=== PATIENT | female | born 2000 | race Caucasian/White ===

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

== ENCOUNTER 2021-08-31 19:35 | Emergency (ER) | payer OTHER ==
[2021-08-31 20:28] VITALS: BP 123/85; PULSE 67; RESP 22; TEMP 98
--- NOTE | 2021-08-31 21:01 | XR ---
EXAMINATION TYPE: XR ankle complete RT DATE OF EXAM: 08/31/2021 COMPARISON: NONE HISTORY: Ankle pain foot pain TECHNIQUE: 3 views FINDINGS: Ankle mortise is anatomic. I see no fracture nor dislocation. IMPRESSION: Negative right ankle exam.
--- NOTE | 2021-08-31 21:02 | XR ---
EXAMINATION TYPE: XR foot complete RT DATE OF EXAM: 08/31/2021 COMPARISON: NONE HISTORY: Pain TECHNIQUE: 3 views FINDINGS: Metatarsals are intact. I see no fracture nor dislocation. Toes appear intact. IMPRESSION: Negative right foot exam. No fracture.
[2021-08-31] MEDS ORDERED: IBUPROFEN 600 MG TAB PO STA (21:28)
--- NOTE | 2021-08-31 21:28 | ED ---
Lower Extremity Injury HPI - General Chief Complaint: Extremity Injury, Lower Stated Complaint: Ankle and toes checked Time Seen by Provider: 08/31/21 21:21 Source: patient Mode of arrival: ambulatory Limitations: no limitations - History of Present Illness Initial Comments: 21 year-old female patient presents to the emergency department for evaluation o f right foot pain and numbness. States that a few days ago she was hanging out with a friend and they were being "wild". States that she believes she injured the foot that night because she woke with pain. States there has been some redness and swelling that did improve today. She denies taking anything for pain. Denies chance of . Denies any other injuries or concerns. - Related Data Previous Rx's Medication Instructions Recorded Ibuprofen [Motrin] 600 mg PO Q8HR PRN #30 tab 08/31/21 Allergies Allergy/AdvReac Type Severity Reaction Status Date / Time Sulfa (Sulfonamide Allergy Swelling Verified 08/31/21 20:27 Antibiotics) Review of Systems ROS Statement: Those systems with pertinent positive or pertinent negative responses have been documented in the HPI. ROS Other: All systems not noted in ROS Statement are negative. Past Medical History Additional Past Medical History / Comment(s): adhd History of Any Multi-Drug Resistant Organisms: None Reported Past Surgical History: No Surgical Hx Reported Past Psychological History: ADD/ADHD Smoking Status: Former smoker, Vaper Past Alcohol Use History: None Reported Past Drug Use History: None Reported General Exam Limitations: no limitations General appearance: alert, in no apparent distress, other (This is a well- developed, well-nourished adult female patient in no acute distress.) Eye exam: Present: normal appearance, PERRL, EOMI. Absent: scleral icterus, conjunctival injection, periorbital swelling ENT exam: Present: normal exam, normal oropharynx, mucous membranes moist Respiratory exam: Present: normal lung sounds bilaterally. Absent: respiratory distress, wheezes, rales, rhonchi, stridor Cardiovascular Exam: Present: regular rate, normal rhythm, normal heart sounds. Absent: systolic murmur, diastolic murmur, rubs, gallop, clicks Extremities exam: Present: full ROM, normal capillary refill, other (There is tenderness over the dorsal aspect of the foot. No soft tissue swelling or ecchymosis noted. No erythema. Skin is otherwise pink, warm, dry. Cap refill less than 3 seconds. Pedal and posttibial pulses 2+.). Absent: tenderness, pedal edema, joint swelling, calf tenderness Neurological exam: Present: alert, oriented X3, CN II-XII intact Psychiatric exam: Present: normal affect, normal mood Skin exam: Present: warm, dry, intact, normal color. Absent: rash Course Vital Signs 08/31/21 20:23 Temperature 98 F Pulse Rate 67 Respiratory 22 Rate Blood Pressure 123/85 O2 Sat by Pulse 100 Oximetry Medical Decision Making - Medical Decision Making 21-year-old female patient presents to the emergency department today for evaluation of right foot pain. Physical examination did reveal some tenderness over the dorsal aspect of the foot. She is able to ambulate. Neurovascular status is intact. Trace of the right ankle and foot are negative. She is placed in an Jaren wrap. She'll be discharged follow up with the primary care physician for recheck in 1-2 days. She is instructed to follow-up with orthopedics if symptoms are not improved after one week. Return parameters were discussed in detail. She verbalizes understanding and agrees with this plan. My attending is Dr. Padilla. - Radiology Data Radiology results: report reviewed, image reviewed 3 views of the right ankle are obtained. Report is reviewed in its entirety. Impression by Dr. Overton shows negative right ankle exam. 3 views of the right foot are obtained. Report was reviewed in its entirety. Impression by Dr. Overton shows negative right foot examined. No fracture. Disposition Clinical Impression: Right foot sprain Disposition: HOME SELF-CARE Condition: Good Instructions (If sedation given, give patient instructions): Foot Sprain (ED) Additional Instructions: Use Jaren wrap for comfort and support. Rest, ice, elevate the foot. Take medication as directed. Follow-up with orthopedics in 1 week if her symptoms are not improved. Return for any new, worsening, or concerning symptoms. Prescriptions: Ibuprofen [Motrin] 600 mg PO Q8HR PRN #30 tab PRN Reason: Pain Is patient prescribed a controlled substance at d/c from ED?: No Referrals: Zina Cohen MD [Primary Care Provider] - 1-2 days Time of Disposition: 21:28
== END 2021-08-31 21:34 | disposition home or self-care (01) ==
LOC: EC 19:35
DX: S93.601A Unspecified sprain of right foot, initial encounter (principal); F90.9 Attention-deficit hyperactivity disorder, unspecified type; Z88.2 Allergy status to sulfonamides; Z87.891 Personal history of nicotine dependence; X58.XXXA Exposure to other specified factors, initial encounter
CPT/HCPCS: 99283

== ENCOUNTER 2022-01-20 14:31 | Emergency (ER) | payer OTHER ==
[2022-01-20 14:55] VITALS: BP 122/87; PULSE 96; RESP 18; TEMP 97.8
--- NOTE | 2022-01-20 15:54 | XR ---
EXAMINATION TYPE: XR chest 1V portable DATE OF EXAM: 01/20/2022 COMPARISON: 09/06/2010 HISTORY: Cough TECHNIQUE: Single frontal view of the chest is obtained. FINDINGS: There is no focal air space opacity, pleural effusion, or pneumothorax seen. The cardiac silhouette size is within normal limits. The osseous structures are intact. IMPRESSION: 1. No acute process.
--- NOTE | 2022-01-20 16:25 | ED ---
ENT HPI - General Chief complaint: ENT Stated complaint: Shortness of Breath, Sore throat Time Seen by Provider: 01/20/22 14:58 Source: patient, RN notes reviewed, old records reviewed Mode of arrival: ambulatory Limitations: no limitations - History of Present Illness Initial comments: Patient is a 21-year-old female presenting to the emergency Department with complaints of a sore throat for the past 2 days, she has a mild cough and also felt like she was short of breath today while at work. Patient states her work is making her come in to get tested for strep and possible covid. She denies any fevers or chills. She states 2 days ago when her sore throat started she felt like her voice change as well. She's been eating and drinking without difficulty. She has not taken any Tylenol or Motrin for discomfort. She denies history of asthma, she denies shortness of breath or chest pain at this time. She denies any nausea or vomiting, no abdominal pain. She denies any headaches or blurry vision. She has no further complaints. She denies being . - Related Data Previous Rx's Medication Instructions Recorded Ibuprofen [Motrin] 600 mg PO Q8HR PRN #30 tab 08/31/21 Allergies Allergy/AdvReac Type Severity Reaction Status Date / Time Sulfa (Sulfonamide Allergy Swelling Verified 01/20/22 14:53 Antibiotics) Review of Systems ROS Statement: Those systems with pertinent positive or pertinent negative responses have been documented in the HPI. ROS Other: All systems not noted in ROS Statement are negative. Past Medical History Additional Past Medical History / Comment(s): adhd History of Any Multi-Drug Resistant Organisms: None Reported Past Surgical History: No Surgical Hx Reported Past Psychological History: ADD/ADHD Smoking Status: Former smoker, Vaper Past Alcohol Use History: None Reported Past Drug Use History: None Reported General Exam - General Exam Comments Initial Comments: GENERAL: Patient is well-developed and well-nourished. Patient is nontoxic and in no acute distress. HEAD: Atraumatic, normocephalic. EYES: Pupils equal round and reactive to light, extraocular movements intact, sclera anicteric, conjunctiva are normal. Eyelids were unremarkable. ENT: TMs normal, nares patent, oropharynx clear without exudates. Moist mucous membranes. NECK: Normal range of motion, supple without lymphadenopathy or JVD. LUNGS: Unlabored respirations. Breath sounds clear to auscultation bilaterally and equal. No wheezes rales or rhonchi. HEART: Regular rate and rhythm without murmurs, rubs or gallops. ABDOMEN: Soft, nontender, normoactive bowel sounds. No guarding, no rebound. No masses appreciated. MUSCULOSKELETAL: Normal extremities with adequate strength and normal range of motion, no pitting or edema. No clubbing or cyanosis. NEUROLOGICAL: Patient is alert and oriented x 3. SKIN: Warm, Dry, normal turgor, no rashes or lesions noted. Limitations: no limitations Course Vital Signs 01/20/22 14:53 Temperature 97.8 F Pulse Rate 96 Respiratory 18 Rate Blood Pressure 122/87 O2 Sat by Pulse 97 Oximetry Medical Decision Making - Medical Decision Making Patient is a 21-year-old female here with viral type complaints started 2 days ago. Her vitals are stable, she is afebrile. Her exam is unremarkable. Chest x-ray showed no acute process, strep is negative, influenza and Covid are also negative. Discussed findings with the patient. Symptoms most likely viral. Recommended Tylenol and/or Motrin, increase her fluids. She is agreeable this plan of care. She requesting a work note. She stable for discharge. - Lab Data Lab Results 01/20/22 01/20/22 Range/Units 15:25 15:25 Influenza Type A (PCR) Not Detected (Not Detectd) Influenza Type B (PCR) Not Detected (Not Detectd) RSV (PCR) Not Detected (Not Detectd) SARS-CoV-2 (PCR) Not Detected (Not Detectd) Group A Strep Rapid Negative (Negative) Disposition Clinical Impression: Viral syndrome Disposition: HOME SELF-CARE Condition: Stable Instructions (If sedation given, give patient instructions): Viral Syndrome (ED) Additional Instructions: Please return to the Emergency Department if symptoms worsen or any other concerns. Cold, flu are negative, shortness test is also negative. Recommend Tylenol and/or Motrin for your symptoms. Lots of fluids. Is patient prescribed a controlled substance at d/c from ED?: No Referrals: Zina Cohen MD [Primary Care Provider] - 1-2 days Time of Disposition: 16:25
== END 2022-01-20 16:34 | disposition home or self-care (01) ==
LOC: EC 14:31
DX: B34.9 Viral infection, unspecified (principal); Z87.891 Personal history of nicotine dependence; Z20.822 Contact with and (suspected) exposure to COVID-19; Z88.2 Allergy status to sulfonamides
CPT/HCPCS: 71045; 87081; 87430; 87636; 99285

== ENCOUNTER → 2023-10-14 | Outpatient (CLI) | payer BC, OTHER ==
--- NOTE | 2023-10-14 12:59 | US ---
EXAMINATION TYPE: US pelvis complete transvag DATE OF EXAM: 10/14/2023 COMPARISON: NONE CLINICAL INDICATION: Female, 23 years old with history of R89.1 ABNORMAL LEVEL OF HORMONES; suspected PCOS, very light menses x 1 year, trying to conceive since February 2023 TECHNIQUE: Transvaginal (TV) and Transabdominal (TA) . Transabdominal sonographic images of the pel vis were acquired. Transvaginal sonographic images were medically necessary to better assess the fol lowing anatomy: Ovaries Date of LMP: 10/12/2023 EXAM MEASUREMENTS: Uterus: 6.8x2.9x4.4 cm Endometrial Stripe: 0.3 cm Right Ovary: 3.2x1.4x2.7 cm Left Ovary: 3.0x1.3x2.1 cm 1. Uterus: Anteverted wnl 2. Endometrium: wnl 3. Right Ovary: small peripheral follicles string of isabel sign ?PCOS? 4. Left Ovary: small peripheral follicles string of isabel sign ?PCOS? 5. Bilateral Adnexa: dilated venous vessels ?pelvic congestion syndrome? 6. Posterior cul-de-sac: small amount of free fluid IMPRESSION: 1. No evidence for acute process. 2. Endometrium within normal limits. 3. Multiple peripheral follicles correlate for polycystic ovarian syndrome
== END | disposition home or self-care (01) ==
LOC: RADUSWWP 12:06
PROVIDERS: ATTEND Family Medicine
DX: N83.8 Other noninflammatory disorders of ovary, fallopian tube and broad ligament (principal); R89.1 Abnormal level of hormones in specimens from other organs, systems and tissues
CPT/HCPCS: 76830; 76856